=== PATIENT | female | born 1945 | race Caucasian/White ===

== ENCOUNTER 2016-09-21 10:32 | Inpatient (IN) | payer MEDICARE, BC ==
[~2016-09-21 10:32] MED LIST: ASPIRIN81 M1 PO; FLONASE ALLERG9.9 ML; FUROSEMIDE40 M2 PO; IMURAN50 M1 PO; MACROBID 100 M100 M1 PO; NORVASC5 M2 PO; ONDANSETRON HCL4 M2 PO; ONE DAILY COMP1 EAC2 PO; PRILOSEC OTC20 M1 PO; TYLENOL325 M2 PO; ULTRAM50 M1 PO; VITAMIN B COMP1 EAC1 PO
[2016-09-21 11:38] LABS: HCT-HEMATOCRIT 31.8 % (34.0-49.0); HGB-HEMOGLOBIN 9.8 gm/dl (12.0-15.5)
[2016-09-22 08:12] LABS: BASO % 0.2 % (0-2); HCT-HEMATOCRIT 30.4 % (34.0-49.0); HGB-HEMOGLOBIN 9.1 gm/dl (12.0-15.5); LYMPH % 25.9 % (20-45); LYMPH ABSOLUTE COUNT 2.6 tho/cmm (0.8-4.5); MCH (MEAN CORPUSCULAR HGB) 25.9 pg (28.0-32.0); MCHC MEAN CORPUSCULAR HGB CONC 29.9 % (32.0-36.0); MCV (MEAN CELL VOLUME) 86.4 fl (82.0-96.0); MEAN PLATELET VOLUME 9.8 cmc (9.4-12.4); MONOCYTE ABSOLUTE COUNT 0.7 tho/cmm (0.0-1.2); NEUTROPHIL ABSOLUTE COUNT 6.8 tho/cmm (1.6-8.0); NEUTROPHIL-AUTOMATED 6.8 tho/cmm (1.6-8.0); NEUTROPHILS % 66.9 % (40-80); PLATELET COUNT 536 tho/cmm (150-450); RED BLOOD COUNT 3.52 mil/cmm (4.00-5.20); RED CELL DISTRIBUTION WIDTH 18.2 % (12.4-16.4); WHITE BLOOD COUNT 10.2 tho/cmm (4.0-10.0)
[2016-09-22 08:21] LABS: ANION GAP 10 mmol/L (0-20); BLOOD UREA NITROGEN 10 mg/dl (6-24); CALCIUM 8.7 mg/dl (8.5-10.5); CARBON DIOXIDE-VENOUS 27 mmol/L (22-32); CHLORIDE 105 mmol/l (96-110); CREATININE 0.74 mg/dl (0.50-1.10); GLUCOSE 104 mg/dL (70-110); POTASSIUM 3.4 mmol/L (3.7-5.1); SODIUM 139 mmol/L (135-145); eGFR VALUE FOR BLACK >90 mL/Min
[2016-09-22 16:09] LABS: ANION GAP 10 mmol/L (0-20); BLOOD UREA NITROGEN 10 mg/dl (6-24); CALCIUM 8.5 mg/dl (8.5-10.5); CARBON DIOXIDE-VENOUS 29 mmol/L (22-32); CHLORIDE 105 mmol/l (96-110); CREATININE 0.81 mg/dl (0.50-1.10); GLUCOSE 143 mg/dL (70-110); POTASSIUM 3.4 mmol/L (3.7-5.1); SODIUM 141 mmol/L (135-145); eGFR VALUE FOR BLACK 85 mL/Min
[2016-09-23 07:39] LABS: ANION GAP 13 mmol/L (0-20); BLOOD UREA NITROGEN 9 mg/dl (6-24); CALCIUM 8.3 mg/dl (8.5-10.5); CARBON DIOXIDE-VENOUS 28 mmol/L (22-32); CHLORIDE 106 mmol/l (96-110); CREATININE 0.68 mg/dl (0.50-1.10); GLUCOSE 125 mg/dL (70-110); POTASSIUM 4.2 mmol/L (3.7-5.1); SODIUM 143 mmol/L (135-145); eGFR VALUE FOR BLACK >90 mL/Min
[2016-09-23 09:34] LABS: BASO % 0.4 % (0-2); HCT-HEMATOCRIT 30.5 % (34.0-49.0); HGB-HEMOGLOBIN 9.5 gm/dl (12.0-15.5); IMMATURE GRANULOCYTES ABSOLUTE 0.02 tho/cmm (0-0.03); IMMATURE GRANULOCYTES PERCENT 0.2 % (0-0.3); LYMPH % 24.9 % (20-45); MCH (MEAN CORPUSCULAR HGB) 26.5 pg (28.0-32.0); MCHC MEAN CORPUSCULAR HGB CONC 31.1 % (32.0-36.0); MEAN PLATELET VOLUME 8.9 cmc (9.4-12.4); MONO % 9.7 % (0-12); MONOCYTE ABSOLUTE COUNT 0.8 tho/cmm (0.0-1.2); NEUTROPHIL ABSOLUTE COUNT 5.2 tho/cmm (1.6-8.0); NEUTROPHIL-AUTOMATED 5.2 tho/cmm (1.6-8.0); NEUTROPHILS % 64.8 % (40-80); PLATELET COUNT 469 tho/cmm (150-450); RED BLOOD COUNT 3.59 mil/cmm (4.00-5.20); RED CELL DISTRIBUTION WIDTH 18.7 % (12.4-16.4)
[2016-09-24 05:39] LABS: BASO % 0.4 % (0-2); HCT-HEMATOCRIT 30.3 % (34.0-49.0); HGB-HEMOGLOBIN 9.3 gm/dl (12.0-15.5); IMMATURE GRANULOCYTES ABSOLUTE 0.01 tho/cmm (0-0.03); IMMATURE GRANULOCYTES PERCENT 0.1 % (0-0.3); LYMPH % 35.3 % (20-45); LYMPH ABSOLUTE COUNT 2.9 tho/cmm (0.8-4.5); MCH (MEAN CORPUSCULAR HGB) 25.9 pg (28.0-32.0); MCHC MEAN CORPUSCULAR HGB CONC 30.7 % (32.0-36.0); MCV (MEAN CELL VOLUME) 84.4 fl (82.0-96.0); MEAN PLATELET VOLUME 9.7 cmc (9.4-12.4); MONO % 8.5 % (0-12); MONOCYTE ABSOLUTE COUNT 0.7 tho/cmm (0.0-1.2); NEUTROPHIL ABSOLUTE COUNT 4.5 tho/cmm (1.6-8.0); NEUTROPHIL-AUTOMATED 4.5 tho/cmm (1.6-8.0); NEUTROPHILS % 55.7 % (40-80); PLATELET COUNT 462 tho/cmm (150-450); RED BLOOD COUNT 3.59 mil/cmm (4.00-5.20); RED CELL DISTRIBUTION WIDTH 19.2 % (12.4-16.4); WHITE BLOOD COUNT 8.1 tho/cmm (4.0-10.0)
[2016-09-24 06:02] LABS: ANION GAP 12 mmol/L (0-20); BLOOD UREA NITROGEN 9 mg/dl (6-24); CALCIUM 8.7 mg/dl (8.5-10.5); CARBON DIOXIDE-VENOUS 29 mmol/L (22-32); CHLORIDE 102 mmol/l (96-110); CREATININE 0.74 mg/dl (0.50-1.10); GLUCOSE 139 mg/dL (70-110); POTASSIUM 3.6 mmol/L (3.7-5.1); SODIUM 139 mmol/L (135-145); eGFR VALUE FOR BLACK >90 mL/Min
[2016-09-24] MEDS ORDERED: PROTONIX40 M2 PO (10:29)
[2016-09-24] MEDS ORDERED: ZOFRAN ODT4 MG SL (10:48)
[2016-11-29] MEDS ORDERED: CLINIMIX 5%-12000 ML IV (14:36)
[2016-11-29] MEDS ORDERED: CARDIZEM30 M1 PO (14:37)
[2016-11-29] MEDS ORDERED: FEOSOL325 M1 PO (14:38)
[2016-11-29] MEDS ORDERED: LOVENOX40 MG/0.1 SC (14:38)
[2016-11-29] MEDS ORDERED: HUMULIN 70100 UNIT/2 SC (14:39)
[2016-11-29] MEDS ORDERED: INTRALIPID250 ML IV (14:41)
[2016-11-29] MEDS ORDERED: ZOSYN 3.373.375 GM/2 IV (14:42)
[2016-11-29] MEDS ORDERED: POTASSIUM CHLO20 ME3 PO (14:42)
[2016-11-29] MEDS ORDERED: NORMAL SALINE FL2 ML IV (14:43)
[2016-11-29] MEDS ORDERED: ARTIFICIAL TEA1 EAC2 EACH EYE (14:45)
[2016-11-29] MEDS ORDERED: DICLOFENAC SOD100 GM TP (14:46)
[2016-11-29] MEDS ORDERED: FENTANYL IVP (14:48)
[2016-12-04] MEDS ORDERED: HUMULIN R100 UNITS/ SC (14:40)
[2016-12-04] MEDS ORDERED: SODIUM CHLORIDE 0.9% IV (14:43)
[2016-12-04] MEDS ORDERED: GLUCOSE33 GM PO (14:45)
[2016-12-04] MEDS ORDERED: DEXTROSE 525 GM/501 IVP (14:46)
[2016-12-04] MEDS ORDERED: GLUCAGON EMERGEN1 MG IM (14:47)
[2016-12-04] MEDS ORDERED: ICY HOT CREAM35.4 GM TP (14:51)
[2016-12-04] MEDS ORDERED: ONDANSETRON2 MG/1 ML IVP (14:53)
== END 2016-09-24 10:54 | DRG 328 ==
LOC: SHSA 10:32 → ORW 12:34 → PACU 15:16 → BURN 17:05
PROVIDERS: Family Medicine; Surgery; ADMIT Surgery
PROC: 0DV44ZZ Restriction of Esophagogastric Junction, Percutaneous Endoscopic Approach (ICD-10-PCS; principal; 2016-09-21)
PROC: 0BQS4ZZ (ICD-10-PCS; 2016-09-21)
DX: K44.0 Diaphragmatic hernia with obstruction, without gangrene (principal); G70.00 Myasthenia gravis without (acute) exacerbation; I25.10 Atherosclerotic heart disease of native coronary artery without angina pectoris; I10 Essential (primary) hypertension; Z79.82 Long term (current) use of aspirin; K22.70 Barrett's esophagus without dysplasia; E78.5 Hyperlipidemia, unspecified; K22.4 Dyskinesia of esophagus; I73.00 Raynaud's syndrome without gangrene; Z95.1 Presence of aortocoronary bypass graft; K21.0 Gastro-esophageal reflux disease with esophagitis; M17.11 Unilateral primary osteoarthritis, right knee
CPT/HCPCS: C1751; C9113; C9290; J0131; J0690; J1170; J1644; J2250; J2765; J3010; J7030; J7040; J7500